=== PATIENT | female | born 1995 | race Caucasian/White ===

== ENCOUNTER 2016-11-23 12:09 | Emergency (ER) | payer OTHER ==
[2016-11-23 12:20] VITALS: BP 118/65; TEMP 97; O2SAT 100
[2016-11-23 12:21] VITALS: BMI 24.1
--- NOTE | 2016-11-23 12:41 | ED PDOC ---
HPI: CCC, URI, Sore Throat Time Seen by Provider: 11/23/16 12:20 Chief Complaint (Nursing): ENT Problem Chief Complaint (Provider): ENT problem History Per: Patient History/Exam Limitations: no limitations Onset/Duration Of Symptoms: Days (5x) Current Symptoms Are (Timing): Still Present Location Of Pain: Throat Associated Symptoms: Fever (subjective), Chills, Sore Throat, Cough, Neck Pain Ear Symptoms: Bilateral: None Severity: Moderate Additional Complaint(s): 21 year old female with no pertinent medical history presents to the ED with complaints of throat pain that started 5x days ago. She reports having associated symptoms of a cough, body aches, subjective fever, and neck swelling. She also notes that her lip piercing feels swollen and infected and she has canker sores on the sides of her tongue and on her lip. She reports taking tylenol, dayquil, cough drops, and sore throat relief spray with no relief. She denies taking any medicine today. She denies having abdominal pain, nausea, vomiting, diarrhea, ear pain, headaches, or dizziness. Patient denies having any sick contacts. PMD: Not provided. Past Medical History Reviewed: Historical Data, Nursing Documentation, Vital Signs Vital Signs: Last Vital Signs Temp 97 F L 11/23/16 12:19 Pulse 107 H 11/23/16 12:19 Resp BP 118/65 11/23/16 12:19 Pulse Ox 100 11/23/16 12:54 - Medical History PMH: Hypothyroidism - Surgical History Surgical History: No Surg Hx - Family History Family History: States: No Known Family Hx - Social History Alcohol: None Drugs: Denies - Home Medications Home Medications: Ambulatory Orders Medication Instructions Recorded Ibuprofen [Motrin] 600 mg PO Q8 PRN #21 tab 11/23/16 - Allergies Allergies/Adverse Reactions: Allergies Allergy/AdvReac Type Severity Reaction Status Date / Time No Known Allergies Allergy Verified 11/23/16 12:30 Review of Systems ROS Statement: Except As Marked, All Systems Reviewed And Found Negative Constitutional: Positive for: Fever (subjective), Chills ENT: Positive for: Throat Pain, Other (neck swelling) Respiratory: Positive for: Cough Gastrointestinal: Negative for: Nausea, Vomiting, Abdominal Pain, Diarrhea Neurological: Negative for: Headache Physical Exam - Reviewed Nursing Documentation Reviewed: Yes Vital Signs Reviewed: Yes - Physical Exam Appears: Positive for: Well, Non-toxic, No Acute Distress Head Exam: Positive for: ATRAUMATIC, NORMOCEPHALIC Skin: Positive for: Normal Color, Warm, Dry Eye Exam: Positive for: Normal appearance, EOMI, PERRL ENT: Positive for: TM Is/Are (cerumen in ears, non erythematous, no discharge), Pharyngeal Erythema (minimal), Tonsillar Exudate, Other (small vesicle noted on lip) Cardiovascular/Chest: Positive for: Regular Rate, Rhythm Respiratory: Positive for: Normal Breath Sounds. Negative for: Respiratory Distress Neurologic/Psych: Positive for: Alert, Oriented (3x) - ECG O2 Sat by Pulse Oximetry: 100 (RA) Pulse Ox Interpretation: Normal - Progress ED Course And Treament: MONO POSITIVE STREP NEG DECADRON 10 MG IM X 1 DOSE Medical Decision Making Medical Decision Makin:20 Initial impression: 21 year old female with throat pain. Initial plan: * decadron inj 10mg IM * mono test * rapid strep group a antigen * reevaluation Scribe Attestation: Documented by Elise Moreno, acting as a scribe for Nickie Bacon PA-C. Provider Scribe Attestation: All medical record entries made by the Scribe were at my direction and personally dictated by me. I have reviewed the chart and agree that the record accurately reflects my personal performance of the history, physical exam, medical decision making, and the department course for this patient. I have also personally directed, reviewed, and agree with the discharge instructions and disposition. Disposition - Clinical Impression Clinical Impression: Mononucleosis - Patient ED Disposition Is Patient to be Admitted: No - Disposition Referrals: [facility] [Outside] Disposition: Routine/Home Disposition Time: 14:30 Condition: FAIR Prescriptions: Ibuprofen [Motrin] 600 mg PO Q8 PRN #21 tab PRN Reason: Pain, Moderate (4-7) Instructions: Mononucleosis (ED) Forms: [facility] ED School/Work Excuse
[2016-11-23 14:57] VITALS: PULSE 90; RESP 16
== END 2016-11-23 14:51 | disposition home or self-care (01) ==
LOC: H.ER 12:09
DX: B27.90 Infectious mononucleosis, unspecified without complication (principal); J02.9 Acute pharyngitis, unspecified; R05 Cough; M54.2 Cervicalgia; R22.0 Localized swelling, mass and lump, head; E03.9 Hypothyroidism, unspecified